=== PATIENT | male | born 1955 | race Caucasian/White ===

== ENCOUNTER 2023-03-24 11:27 | Emergency (ER) | payer MEDICARE, SELFPAY ==
[2023-03-24 12:48] VITALS: BP 116/70; PULSE 74; RESP 20; TEMP 36.3; O2SAT 98
--- NOTE | 2023-03-24 13:45 | ED.BACK ---
HPI - Back Pain/Injury General Chief Complaint: Back Pain/Injury Stated Complaint: lower back pain Time Seen by Provider: 03/24/23 13:45 Source: patient and RN notes reviewed Mode of arrival: ambulatory Limitations: no limitations History of Present Illness HPI Narrative: 68-year-old male presents with concern for right low back pain for about 2 weeks. Reports has been progressively getting worse over the last 2 weeks. Reports he took Tylenol without relief. Reports he took Aleve last night which did help and be able to walk this morning when normally walking has caused him pain. He denies any injury or trauma. He denies loss of bowel or bladder function, perianal anesthesia, weakness in any extremity. He reports the right low back pain radiates down his right leg. He denies rash, open skin, abdominal pain, fever MD elicited complaint: back pain Related Data Allergies Allergy/AdvReac Type Severity Reaction Status Date / Time shellfish derived Allergy Severe Anaphylaxis Verified 03/24/23 13:54 Sulfa (Sulfonamide Allergy Mild Hives Verified 03/24/23 13:54 Antibiotics) Review of Systems Review of Systems: CONSTITUTIONAL: Denies malaise, chills, sweats, or fever. CARDIOVASCULAR: Denies chest pain, palpitations, or edema. RESPIRATORY: Denies cough or dyspnea. GASTROINTESTINAL: Denies abdominal pain, nausea, vomiting, diarrhea, loss of bowel function GENITOURINARY: Denies dysuria, hematuria, frequency, loss of bladder function. SKIN: Denies rash or itching. MUSCULOSKELETAL: Reports right low back pain that radiates to the right leg NEUROLOGIC: Denies numbness, weakness, or headache. All systems reviewed & are unremarkable except as noted in HPI and below PMFSH Comments At time of signature, agree with nursing past medical, surgical, social and family history. There is no relevant family history pertinent to the presenting complaint Exam Narrative: GENERAL: Well-appearing, well-nourished, and in no acute distress. HEAD: Normocephalic, atraumatic. EYES: PERRLA and EOMI. NECK: Supple. No lymphadenopathy. CHEST: Clear to auscultation. No respiratory distress. HEART: Regular rate and rhythm. Distal pulses palpable and equal, cap refill <3 seconds ABDOMEN: Soft, nontender, nondistended, normal active bowel sounds, no palpable or pulsatile masses. No CVA tenderness MUSCULOSKELETAL: Normal range of motion and strength in all extremities; 5/5 strength with hip flexion and extension, dorsiflexion and extension, knee flexion and extension, plantar flexion and extension. Normal sensation in dermatomal distributions with sensitivity to light touch and pain. No midline back tenderness to palpation. Right paraspinal tenderness. Transfers from sitting to standing. SKIN: Warm, dry, no rash. No ecchymosis, erythema, open wounds to back. NEURO: No focal deficits. Alert and oriented x3. Reflexes intact. Normal gait. PSYCH: Normal mood and affect Course Course Emergency Course: Patient is aware of diagnosis, understands and agrees to treatment plan. Anticipatory guidance given. Patient agrees to follow-up as directed and is aware of reasons to seek care at the emergency department. Portions of this record may have been created with voice recognition software Level of Care: Express Care Visit Vital Signs Vital signs: Vital Signs Temperature 97.3 F L 03/24/23 12:48 Pulse Rate 74 03/24/23 12:48 Respiratory Rate 20 03/24/23 12:48 Blood Pressure 116/70 03/24/23 12:48 Pulse Oximetry 98 03/24/23 12:48 Oxygen Delivery Room Air 03/24/23 12:48 Temperature 97.3 F L 03/24/23 12:48 Pulse Rate 74 03/24/23 12:48 Respiratory Rate 20 03/24/23 12:48 Blood Pressure 116/70 03/24/23 12:48 Pulse Oximetry 98 03/24/23 12:48 Oxygen Delivery Room Air 03/24/23 12:48 Reviewed. MDM - Back Pain/Injury MDM Narrative Medical decision making narrative: No risk factors or findings concerning for epidural
== END 2023-03-24 14:05 | disposition home or self-care (01) ==
PROVIDERS: Emergency Provider Nurse Practitioner; PCP Family Medicine
DX: M54.31 Sciatica, right side (principal)
CPT/HCPCS: 99203; G0463